=== PATIENT | male | born 1960 | race Hispanic/Latino ===

== ENCOUNTER 2017-03-04 13:15 | Emergency (ER) | payer MEDICAID ==
[2017-03-04 13:17] VITALS: BMI 26.2
[2017-03-04 13:23] VITALS: RESP 18; TEMP 99.2
--- NOTE | 2017-03-04 14:01 | ED PDOC ---
Arrival/HPI - General Historian: Patient - History of Present Illness Time/Duration: < week Symptom Onset: Sudden Symptom Course: Intermittent Quality: Cramping <Lawson Barrett - Last Filed: 03/04/17 14:21> <KelseyGriselda - Last Filed: 03/04/17 18:17> - General Chief Complaint: Abdominal Pain Time Seen by Provider: 03/04/17 13:18 - History of Present Illness Narrative History of Present Illness (Text): 03/04/17 13:50 This is a 57 year old male with PMHx CAD s/p stents, HTN, COPD, chronic smoking history who complains of epigastric abdominal pain. Pain began about 6 days ago and is intermittent, described as cramping. Patient stated that pain began suddenly and is not associated with meals. Patient states that pain begins epigastric but radiates up to the mid-sternum before returning down to the epigastric region. Patient stated that he lost about 10 pounds in a 8 or 9 day span, though he cites poor appetite and stress from new job. Patient states that he has never experienced this type of pain before. Patient denies fevers, chills, dyspnea, n/v/c/d/ dysuria. Patient also states that he used a cotton swab in his ear about 4 or 5 days ago, and since then he has been unable to hear very well in his left ear. PMHx: CAD, HTN, COPD PSHx: PCI with stents Allergies: NKDA Social: Current smoker smoking since age 9 or 10, but states that he has cut back. Denies alcohol, drugs. PMD: Dr. Coreas (Lawson Barrett) Past Medical History - Provider Review Nursing Documentation Reviewed: Yes - Infectious Disease Hx of Infectious Diseases: None - Tetanus Immunization Tetanus Immunization: Unknown - Cardiac Hx [place]: Yes (X2) - Pulmonary Hx Chronic Obstructive Pulmonary Disease (COPD): Yes Other/Comment: SMOKER - Neurological Hx Neurological Disorder: No - HEENT Hx HEENT Disorder: No - Renal Hx Renal Disorder: No - Endocrine/Metabolic Other/Comment: borderline DM - Hematological/Oncological Hx Blood Disorders: No - Integumentary Hx Dermatological Disorder: No - Musculoskeletal/Rheumatological Hx Musculoskeletal Disorders: No - Gastrointestinal Hx Gastrointestinal Disorders: No - Genitourinary/Gynecological Hx Genitourinary Disorders: No - Psychiatric Hx Depression: No Hx Emotional Abuse: No Hx Physical Abuse: No Hx Substance Use: Yes (RECOVERING) - Past Surgical History Past Surgical History: No Previous - Surgical History Hx Cardiac Catheterization: Yes (x 2 stents) - Anesthesia Hx Anesthesia: Yes Hx Anesthesia Reactions: No Hx Malignant Hyperthermia: No - Suicidal Assessment Feels Threatened In Home Enviroment: No <ArnoldLawson S - Last Filed: 03/04/17 14:21> Family/Social History - Physician Review Nursing Documentation Reviewed: Yes Family/Social History: No Known Family HX Smoking Status: Light Smoker < 10 Cigarettes Daily Hx Alcohol Use: Yes (stopped 15 years ago) Hx Substance Use: Yes (RECOVERING) Substance used: COCAINE; HEROINE Hx Substance Use Treatment: No <Lawson Barrett - Last Filed: 03/04/17 14:21> Allergies/Home Meds <Lawson Barrett - Last Filed: 03/04/17 14:21> <Minh Coleyosi - Last Filed: 03/04/17 18:17> Allergies/Adverse Reactions: Allergies No Known Allergies Allergy (Verified 08/13/12 12:09) Home Medications: Home Meds Medication Instructions Recorded Confirmed Clopidogrel [Plavix] 75 mg PO DAILY 08/13/13 03/04/17 Aspirin [Aspirin Chewable] 1 tab PO DAILY 03/04/17 03/04/17 Montelukast [Singulair] 1 tab PO DAILY 03/04/17 03/04/17 Review of Systems - Physician Review All systems were reviewed & negative as marked: Yes - Review of Systems Constitutional: Weight Change (lost 10 pounds in 8 or 9 days). absent: Fevers Eyes: Normal ENT: Normal Respiratory: Normal. absent: SOB Cardiovascular: Chest Pain (radiating from epigastric region) Gastrointestinal: Abdominal Pain (epigastric), Appetite Changes (poor appetite, patient cites stress from new job). absent: Stool Changes, Constipation, Diarrhea, Nausea, Vomiting, Food Intolerance Genitourinary Male: Normal. absent: Dysuria Musculoskeletal: Normal Skin: Normal Neurological: Normal Endocrine: Normal Hemo/Lymphatic: Normal Psychiatric: Normal <Lawson Barrett - Last Filed: 03/04/17 14:21> Physical Exam Vital Signs Reviewed: Yes Temperature: Afebrile Blood Pressure: Normal Pulse: Regular Respiratory Rate: Normal Appearance: Positive for: Well-Appearing Pain Distress: None Mental Status: Positive for: Alert and Oriented X 3 - Systems Exam Head: Present: Atraumatic, Normocephalic Pupils: Present: PERRL Extroacular Muscles: Present: EOMI Conjunctiva: Present: Normal Ears: Present: Other (cerumen impaction left ear) Mouth: Present: Moist Mucous Membranes Neck: Present: Normal Range of Motion Respiratory/Chest: Present: Clear to Auscultation, Good Air Exchange. No: Accessory Muscle Use Cardiovascular: Present: Regular Rate and Rhythm, Normal S1, S2 Abdomen: Present: Normal Bowel Sounds. No: Tenderness, Distention Upper Extremity: Present: Normal Inspection, NORMAL PULSES. No: Edema Lower Extremity: Present: Normal Inspection, NORMAL PULSES. No: Edema, CALF TENDERNESS Neurological: Present: GCS=15, CN II-XII Intact Skin: Present: Warm, Dry, Normal Color. No: Rashes Psychiatric: Present: Alert, Oriented x 3 <Lawson Barrett - Last Filed: 03/04/17 14:21> Medical Decision Making <Lawson Barrett - Last Filed: 03/04/17 14:21> - Lab Interpretations I have reviewed the lab results: Yes - EKG Interpretation Interpreted by ED Physician: Yes Type: 12 lead EKG <Griselda Cole - Last Filed: 03/04/17 18:17> ED Course and Treatment: 03/04/17 14:12 CBC, CMP, Coags, Amylase, Lipase, EKG, Cardiac ISO, UA EKG shows NSR at rate 67. No acute ST changes. (Lawson Barrett) 03/04/17 14:40 In agreement with resident note, which includes further HPI details. Patient was seen and evaluated with resident, came up with plan and treatment together. 57 year old male present complaining of intermittent epigastric abdominal pain that began 6 days ago. Labs, EKG, and abdomen and pelvis CT with IV Contrast were done. Patient's pain is palpable, mild, epigastric region. No anthony's sign. No melena or bloody stool. Initial labs reviewed. CT reading reviewed with patient. Cannot exclude malignancy or colitis. This was reviewed with patient and recommended admission for further evaluation and treatment. Abnormal findings discussed with patient in detail, advised admission based on prior poor compliance with follow-up, active symptoms and risk of inflammation/infection/ or malignancy. Limitations of labs and CT reviewed. Risks reviewed with patient of signing out against medical advice. 03/04/17 18:10 Patient decided to leave against medical advice: The patient declines admission, and wishes to leave the Emergency Department. This action is against my medical advice to the patient and the decision was made with informed refusal. The patient was told that admission is necessary and a full explanation of the rationale was given. The risks of leaving were explained to the patient and include, but are not limited to, worsening of known or currently unknown conditions, permanent disability and from undiagnosed or untreated conditions The patient has the capacity to make this informed decision and understands the clinical situation and my explanation of the risks of leaving. The patient voluntarily accepts these risks, and a signed AMA form documenting our conversation was obtained. The patient was given the opportunity to ask questions and reconsider. The patient was encouraged to return to the Emergency Department at any time for further care. (Griselda Cole) - Lab Interpretations Lab Results: 03/04/17 14:15 03/04/17 14:15 Lab Results 03/04/17 14:15: Sodium 143, Potassium 4.0, Chloride 104, Carbon Dioxide 26, Anion Gap 17, BUN 14, Creatinine 1.0, Est GFR ( Amer) > 60, Est GFR (Non- Af Amer) > 60, Random Glucose 82, Calcium 9.4, Total Bilirubin 0.5, AST 19, ALT 28, Alkaline Phosphatase 79, Lactate Dehydrogenase 395, Total Creatine Kinase 64 , Troponin I < 0.01, Total Protein 7.4, Albumin 4.4, Globulin 3.0, Albumin/ Globulin Ratio 1.5, Amylase 82, Lipase 89 03/04/17 14:15: PT 10.7, INR 0.99, APTT 34.1 H 03/04/17 14:15: WBC 8.4, RBC 4.89, Hgb 15.5, Hct 44.7, MCV 91.4, MCH 31.7, MCHC 34.7, RDW 14.1, Plt Count 234, MPV 10.6, Gran % 63.7, Lymph % (Auto) 27.1, Door % (Auto) 6.9 H, Eos % (Auto) 1.7, Baso % (Auto) 0.6, Gran # 5.36, Lymph # 2.3, Door # 0.6, Eos # 0.1, Baso # 0.05 - RAD Interpretation Radiology Orders: 03/04/17 14:37 ABD & PELVIS IV CONTRAST ONLY [CT] Stat - Medication Orders Current Medication Orders: Sodium Chloride (Sodium Chloride 0.9%) 1,000 mls @ 100 mls/hr IV .Q10H SHAKIRA Last Admin: 03/04/17 14:46 Dose: 100 mls/hr Discontinued Medications Famotidine (Pepcid) 20 mg IVP STAT STA Stop: 03/04/17 14:39 Last Admin: 03/04/17 14:46 Dose: 20 mg Iohexol (Omnipaque 350 100 Ml) Confirm Administered Dose 350 mg .ROUTE .STK-MED ONE Stop: 03/04/17 16:17 <Lawson Barrett - Last Filed: 03/04/17 14:21> - Scribe Statement The provider has reviewed the documentation as recorded by the Scribe <Griselda Cole - Last Filed: 03/04/17 18:17> - Scribe Statement Ruben Camargo All medical record entries made by the Scribe were at my direction and personally dictated by me. I have reviewed the chart and agree that the record accurately reflects my personal performance of the history, physical exam, medical decision making, and the department course for this patient. I have also personally directed, reviewed, and agree with the discharge instructions and disposition. (Griselda Cole) Disposition/Present on Arrival - Present on Arrival Any Indicators Present on Arrival: No History of DVT/PE: No History of Uncontrolled Diabetes: No Urinary Catheter: No History of Decub. Ulcer: No History Surgical Site Infection Following: None <Lawson Barrett - Last Filed: 03/04/17 14:21> - Disposition Have Diagnosis and Disposition been Completed?: Yes Disposition Time: 18:07 Patient Plan: Discharge <Griselda Cole - Last Filed: 03/04/17 18:17> - Disposition Diagnosis: Abdominal pain Disposition: AGAINST MEDICAL ADVICE Patient Problems: Current Active Problems Problem Status Onset Abdominal pain Acute Condition: GOOD Discharge Instructions (ExitCare): Abdominal Pain (ED) Additional Instructions: You are refusing admission to the hospital for further evaluation of abdominal pain and abnormal ct scan findings. Risks and potential diagnoses have been reviewed. Please follow-up immediately with your primary care doctor, you require statistical assistant follow-up. Prescriptions: Esomeprazole Magnesium [Nexium] 20 mg PO DAILY #7 ecc Referrals: PCP,NO [Primary Care Provider] - Follow up with primary Ethan OLSEN,MD Fidencio [Medical Doctor] - Follow up with primary Forms: [facility] [facility] ([place])
[2017-03-04 14:38] LABS: BASO # 0.05 K/mm3 (0.0-2.0); BASO % 0.6 % (0.0-3.0); EOS # 0.1 (0.0-0.7); EOS % 1.7 % (1.5-5.0); GRAN # 5.36 (1.4-6.5); GRAN % 63.7 % (50.0-68.0); HEMATOCRIT 44.7 % (42.0-52.0); LYMPH # 2.3 (1.2-3.4); LYMPH % 27.1 % (22.0-35.0); MEAN CELL VOLUME 91.4 fl (80.0-105.0); MEAN CORPUSCULAR HEMOGLOBIN 31.7 pg (25.0-35.0); MEAN CORPUSCULAR HGB CONC 34.7 g/dl (31.0-37.0); MEAN PLATELET VOLUME 10.6 fl (7.0-11.0); MONO # 0.6 (0.1-0.6); MONO % 6.9 % (1.0-6.0); RED CELL DISTRIBUTION WIDTH 14.1 % (11.5-14.5); WHITE BLOOD COUNT 8.4 10^3/ul (4.5-11.0)
[2017-03-04 14:43] LABS: ALB/GLOB RATIO 1.5 (1.1-1.8); ALKALINE PHOSPHATASE 79 U/L (38-126); ALT/SGPT 28 U/L (7-56); AMYLASE 82 U/L (35-125); AST/SGOT 19 U/L (17-59); BILIRUBIN,TOTAL 0.5 mg/dL (0.2-1.3); BLOOD UREA NITROGEN 14 mg/dL (7-21); CALCIUM 9.4 mg/dL (8.4-10.5); CARBON DIOXIDE 26 mmol/L (21-33); CHLORIDE 104 mmol/L (98-107); GFR AFRICAN-AMERICAN > 60; GLUCOSE,RANDOM 82 mg/dL (70-110); LIPASE 89 U/L (23-300); SODIUM 143 mmol/L (132-148); TOTAL PROTEIN 7.4 g/dL (5.8-8.3)
[2017-03-04 14:45] LABS: INR 0.99 (0.93-1.08); PARTIAL THROMBOPLASTIN TIME 34.1 Seconds (23.7-30.8)
[2017-03-04] MEDS ORDERED: Sodium Chloride 0.9% 1,000 ML IV SCH (14:45)
[2017-03-04 15:39] LABS: TROPONIN I < 0.01 ng/mL
[2017-03-04] MEDS ORDERED: Iohexol 350 MG/100 ML VIAL ONE (16:16)
[2017-03-04 16:40] VITALS: BP 132/78; PULSE 51; O2SAT 99
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
--- NOTE | 2017-03-05 12:14 | CARD ---
APPROVED REPORT EKG Measurement Heart [id number] <Conclusion> Normal sinus rhythm Normal ECG
== END 2017-03-04 18:18 | disposition left against medical advice (07) ==
LOC: ED 13:15
DX: R10.13 Epigastric pain (principal)
CPT/HCPCS: 74177; 80053; 82150; 82550; 83615; 83690; 84484; 85025; 85610; 85730; 93005; 96374; 99284; J7040; Q9967

== ENCOUNTER 2017-04-02 12:36 | Emergency (ER) | payer MEDICAID ==
[2017-04-02 12:37] VITALS: BMI 26.2
[2017-04-02 12:50] VITALS: BP 143/86; PULSE 68; RESP 16; TEMP 98.7; O2SAT 98
--- NOTE | 2017-04-02 13:02 | ED PDOC ---
Arrival/HPI - General Chief Complaint: Back Pain Time Seen by Provider: 04/02/17 12:53 Historian: Patient - History of Present Illness Time/Duration: Other (1 day) Symptom Onset: Gradual Symptom Course: Unchanged Quality: Aching Severity Level: Moderate Associated Symptoms (Text): 04/02/17 12:58 Patient reports that yesterday he was bending over to clean the toilet bowl swirling the brush around the bowl and he developed pain in his right thoracic subscapular area. No direct blow. No fall. No dyspnea. No chest pain. No abdominal pain nausea vomiting or diarrhea. No genitourinary symptoms. No fever or chills. He reports that he needs a note for work today. Past Medical History - Infectious Disease Hx of Infectious Diseases: None - Tetanus Immunization Tetanus Immunization: Unknown - Reproductive Currently : No - Cardiac Hx [place]: Yes (X2) Other/Comment: cardiac stent - Pulmonary Hx Chronic Obstructive Pulmonary Disease (COPD): Yes Other/Comment: SMOKER - Neurological Hx Neurological Disorder: No - HEENT Hx HEENT Disorder: No - Renal Hx Renal Disorder: No - Endocrine/Metabolic Other/Comment: borderline DM - Hematological/Oncological Hx Blood Disorders: No - Integumentary Hx Dermatological Disorder: No - Musculoskeletal/Rheumatological Hx Musculoskeletal Disorders: No - Gastrointestinal Hx Gastrointestinal Disorders: No - Genitourinary/Gynecological Hx Genitourinary Disorders: No - Psychiatric Hx Depression: No Hx Emotional Abuse: No Hx Physical Abuse: No Hx Substance Use: Yes (RECOVERING) - Past Surgical History Past Surgical History: No Previous - Surgical History Hx Cardiac Catheterization: Yes (x 2 stents) - Anesthesia Hx Anesthesia: Yes Hx Anesthesia Reactions: No Hx Malignant Hyperthermia: No - Suicidal Assessment Feels Threatened In Home Enviroment: No Family/Social History - Physician Review Nursing Documentation Reviewed: Yes Family/Social History: Unknown Family HX Smoking Status: Light Smoker < 10 Cigarettes Daily Hx Alcohol Use: Yes (stopped 15 years ago) Hx Substance Use: Yes (RECOVERING) Substance used: COCAINE; HEROINE Hx Substance Use Treatment: No Allergies/Home Meds Allergies/Adverse Reactions: Allergies No Known Allergies Allergy (Verified 08/13/12 12:09) Home Medications: Home Meds Medication Instructions Recorded Confirmed Clopidogrel [Plavix] 75 mg PO DAILY 08/13/13 03/04/17 Aspirin [Aspirin Chewable] 1 tab PO DAILY 03/04/17 03/04/17 Montelukast [Singulair] 1 tab PO DAILY 03/04/17 03/04/17 Review of Systems - Physician Review All systems were reviewed & negative as marked: Yes - Review of Systems Constitutional: Normal Respiratory: Normal Cardiovascular: Normal Gastrointestinal: Normal Genitourinary Male: Normal Musculoskeletal: Back Pain. absent: Neck Pain Skin: Normal Neurological: Normal Physical Exam Vital Signs Temp Pulse Resp BP Pulse Ox 04/02/17 12:46 98.7 F 68 16 143/86 98 Temperature: Afebrile Blood Pressure: Normal Pulse: Regular Respiratory Rate: Normal Appearance: Positive for: Well-Appearing, Non-Toxic, Comfortable Pain Distress: None Mental Status: Positive for: Alert and Oriented X 3 - Systems Exam Neck: Present: Normal Range of Motion Respiratory/Chest: Present: Clear to Auscultation, Good Air Exchange. No: Respiratory Distress, Accessory Muscle Use Cardiovascular: Present: Regular Rate and Rhythm, Normal S1, S2. No: Murmurs Abdomen: Present: Normal Bowel Sounds. No: Tenderness, Distention, Peritoneal Signs Back: Present: Normal Inspection, Paraspinal Tenderness (Right thoracic subscapular tenderness with no spasm no swelling and no skin changes). No: CVA Tenderness, Midline Tenderness Upper Extremity: Present: Normal Inspection. No: Cyanosis, Edema Lower Extremity: Present: Normal Inspection. No: Edema Neurological: Present: GCS=15, CN II-XII Intact, Speech Normal, Motor Func Grossly Intact, Gait Normal Medical Decision Making ED Course and Treatment: 04/02/17 13:02 Acute musculoskeletal strain at home yesterday. He will be discharged home with muscle relaxers to follow up with PMD. He is on aspirin and Plavix. No nonsteroidals. - Medication Orders Current Medication Orders: Cyclobenzaprine HCl (Flexeril) 10 mg PO ONCE SHAKIRA Ketorolac Tromethamine (Toradol) 60 mg IM ONCE ONE Stop: 04/02/17 12:59 Disposition/Present on Arrival - Present on Arrival Any Indicators Present on Arrival: No History of DVT/PE: No History of Uncontrolled Diabetes: No Urinary Catheter: No History of Decub. Ulcer: No History Surgical Site Infection Following: None - Disposition Have Diagnosis and Disposition been Completed?: Yes Diagnosis: Acute myofascial strain Disposition: HOME/ ROUTINE Disposition Time: 13:03 Patient Plan: Discharge Condition: GOOD Discharge Instructions (ExitCare): Thoracic Back Strain (ED) Additional Instructions: Rest and ice. Follow-up with PMD. Follow up in the ER as needed. Tylenol over- the-counter as directed on bottle as needed. Prescriptions: Cyclobenzaprine [Cyclobenzaprine HCl] 5 mg PO Q8 #15 tab Forms: [facility] (Kiswahili), WORK NOTE
== END 2017-04-02 13:23 | disposition home or self-care (01) ==
LOC: ED 12:36
DX: S29.012A Strain of muscle and tendon of back wall of thorax, initial encounter (principal); X50.1XXA Overexertion from prolonged static or awkward postures, initial encounter; Y93.E9 Activity, other interior property and clothing maintenance
CPT/HCPCS: 96372; 99283; J1885

== ENCOUNTER 2018-06-25 10:20 | Emergency (ER) | payer MEDICAID ==
[2018-06-25 10:20] VITALS: BMI 26.2
[2018-06-25 10:53] VITALS: RESP 18; TEMP 98.8; O2SAT 95
--- NOTE | 2018-06-25 11:36 | RAD ---
Date of service: 06/25/2018 HISTORY: chest pain COMPARISON: 04/22/2016 FINDINGS: LUNGS: No active pulmonary disease. PLEURA: No significant pleural effusion identified, no pneumothorax apparent. CARDIOVASCULAR: No aortic atherosclerotic calcification present. Normal cardiac size. Mild vascular congestion OSSEOUS STRUCTURES: No significant abnormalities. VISUALIZED UPPER ABDOMEN: Normal. OTHER FINDINGS: None. IMPRESSION: Mild vascular congestion. The lungs are otherwise clear
[2018-06-25 11:37] LABS: BASO # 0.06 K/mm3 (0.0-2.0); BASO % 0.7 % (0.0-3.0); EOS # 0.1 (0.0-0.7); EOS % 1.7 % (1.5-5.0); GRAN # 5.06 (1.4-6.5); GRAN % 63.1 % (50.0-68.0); HEMOGLOBIN 14.8 g/dL (14.0-18.0); LYMPH # 2.3 (1.2-3.4); LYMPH % 28.7 % (22.0-35.0); MEAN CORPUSCULAR HEMOGLOBIN 30.4 pg (25.0-35.0); MEAN PLATELET VOLUME 10.3 fl (7.0-11.0); MONO # 0.5 (0.1-0.6); MONO % 5.8 % (1.0-6.0); RBC 4.87 10^6/uL (3.5-6.1); RED CELL DISTRIBUTION WIDTH 14.6 % (11.5-14.5)
--- NOTE | 2018-06-25 11:39 | ED PDOC ---
Arrival/HPI - General Chief Complaint: Chest Pain Time Seen by Provider: 06/25/18 10:39 Historian: Patient - History of Present Illness Narrative History of Present Illness (Text): 06/25/18 10:45 A 58 year old male, a current smoker- a few cigarettes a day, whose past medical history includes CAD, AZ (s/p stent placement), COPD, hypertension, and hyperlipidemia, presents to the emergency department complaining of chest pain for the past 3 days. Patient reports pain starts in his left elbow and radiates up his left arm into his chest, he describes it as a sharp pain. Patient notes pain worsens when lifting his left arm above his head. Patient reports he takes 91 mg of Aspirin daily and took a dose today. Patient admits to having a full cardiac workup last year but is unsure of results. Patient notes he does heavy lifting at his job but denies any specific trauma to left arm. Patient denies any drug use, fever, chills, shortness of breath, abdominal pain, numbness, weakness, paresthesia, palpitations, diaphoresis, headache, dizziness, or any other complaints. PMD: Dr. To Time/Duration: Other (3 days) Symptom Onset: Gradual Symptom Course: Unchanged Activities at Onset: Light Context: Home Past Medical History - Provider Review Nursing Documentation Reviewed: Yes - Infectious Disease Hx of Infectious Diseases: None - Tetanus Immunization Tetanus Immunization: Unknown - Cardiac Hx Cardiac Disorders: Yes Hx [place]: Yes (X2) Other/Comment: cardiac stent - Pulmonary Hx Chronic Obstructive Pulmonary Disease (COPD): Yes Other/Comment: SMOKER - Neurological Hx Neurological Disorder: No - HEENT Hx HEENT Disorder: No - Renal Hx Renal Disorder: No - Endocrine/Metabolic Other/Comment: borderline DM - Hematological/Oncological Hx Blood Disorders: No - Integumentary Hx Dermatological Disorder: No - Musculoskeletal/Rheumatological Hx Musculoskeletal Disorders: No - Gastrointestinal Hx Gastrointestinal Disorders: No - Genitourinary/Gynecological Hx Genitourinary Disorders: No - Psychiatric Hx Depression: No Hx Emotional Abuse: No Hx Physical Abuse: No Hx Substance Use: Yes (RECOVERING) - Past Surgical History Past Surgical History: No Previous - Surgical History Hx Cardiac Catheterization: Yes (x 2 stents) - Anesthesia Hx Anesthesia: Yes Hx Anesthesia Reactions: No Hx Malignant Hyperthermia: No - Suicidal Assessment Feels Threatened In Home Enviroment: No Family/Social History - Physician Review Nursing Documentation Reviewed: Yes Family/Social History: No Known Family HX Smoking Status: Light Smoker < 10 Cigarettes Daily Hx Alcohol Use: Yes (stopped 15 years ago) Hx Substance Use: Yes (RECOVERING) Substance used: COCAINE; HEROINE Hx Substance Use Treatment: No Allergies/Home Meds Allergies/Adverse Reactions: Allergies No Known Allergies Allergy (Verified 08/13/12 12:09) Home Medications: Home Meds Medication Instructions Recorded Confirmed Aspirin [Aspirin Chewable] 81 mg PO DAILY 07/11/17 Atorvastatin [Lipitor] 40 mg PO DAILY 07/11/17 Bupropion HCl [Bupropion HCl Sr] 150 mg PO TID 07/11/17 Cilostazol [Pletal] 50 mg PO BID 07/11/17 Clopidogrel [Plavix] 75 mg PO DAILY 07/11/17 Cyclobenzaprine [Flexeril] 5 mg PO TID PRN 07/11/17 Lidocaine 2% [Xylocaine 2%] 4 % [place] PRN PRN 07/11/17 Lisinopril [Zestril] 10 mg PO DAILY 07/11/17 Montelukast [Singulair] 10 mg PO DAILY 07/11/17 Nitroglycerin [Nitrostat] 0.4 mg SL PRN PRN 07/11/17 Omeprazole 20 mg PO DAILY 07/11/17 Trifluridine 1 drop OU PRN PRN 07/11/17 traZODone [Desyrel] 100 mg PO HS 07/11/17 Review of Systems - Physician Review All systems were reviewed & negative as marked: Yes - Review of Systems Constitutional: Normal. absent: Fevers, Other (chills) Eyes: Normal. absent: Vision Changes ENT: Normal. absent: Hearing Changes Respiratory: Normal. absent: SOB, Cough Cardiovascular: Chest Pain. absent: Palpitations Gastrointestinal: absent: Abdominal Pain, Stool Changes, Nausea, Vomiting, Appetite Changes Genitourinary Male: Normal. absent: Dysuria Musculoskeletal: Arthralgias (left arm pain) Skin: Normal. absent: Rash Neurological: Normal. absent: Headache, Dizziness, Other (no numbness, no weakness, no paresthesia) Endocrine: Normal Hemo/Lymphatic: Normal Physical Exam Vital Signs Reviewed: Yes Vital Signs Temp Pulse Resp BP Pulse Ox 06/25/18 10:53 98.8 F 68 18 111/76 95 Temperature: Afebrile Blood Pressure: Normal Pulse: Regular Respiratory Rate: Normal Appearance: Positive for: Well-Appearing Pain Distress: None Mental Status: Positive for: Alert and Oriented X 3 - Systems Exam Head: Present: Atraumatic, Normocephalic Pupils: Present: PERRL Extroacular Muscles: Present: EOMI Conjunctiva: Present: Normal Mouth: Present: Moist Mucous Membranes Nose (External): Present: Atraumatic Nose (Internal): Present: Normal Inspection Neck: Present: Normal Range of Motion. No: Meningeal Signs, MIDLINE TENDERNESS, Paraspinal Tenderness Respiratory/Chest: Present: Clear to Auscultation, Good Air Exchange. No: Respiratory Distress, Accessory Muscle Use Cardiovascular: Present: Regular Rate and Rhythm, Normal S1, S2, Peripheal Pulses Present Abdomen: Present: Normal Bowel Sounds. No: Tenderness, Distention, Peritoneal Signs, Rebound, Guarding Back: Present: Normal Inspection. No: CVA Tenderness, Paraspinal Tenderness Upper Extremity: Present: Normal Inspection, NORMAL PULSES, Neurovascularly Intact, Capillary Refill < 2s. No: Cyanosis, Edema, Temperature Abnormalties Lower Extremity: Present: Normal Inspection, NORMAL PULSES, Normal ROM, Neurovascularly Intact, Capillary Refill < 2 s. No: Edema, Tenderness, Swelling, Deformity, Temperature Abnormalties Neurological: Present: GCS=15, CN II-XII Intact, Speech Normal, Motor Func Grossly Intact, Normal Sensory Function, Gait Normal Skin: Present: Warm, Dry, Normal Color. No: Rashes Lymphatic: Present: Cervical Adenopathy Psychiatric: Present: Alert, Oriented x 3, Normal Insight, Normal Concentration, Normal Affect, Normal Mood Medical Decision Making ED Course and Treatment: 06/25/18 10:48 Impression: 58 year old male with significant cardiac history presenting to the emergency department complaining of chest pain. Plan: -- EKG -- CXR -- CBC, CMP -- Cardiac Iso -- COAGs -- Tylenol -- Aspirin chewable -- Urinalysis, UDS, culture -- Reassess and disposition Prior Visits: Notes and results from previous visits were reviewed. Progress Notes: Bloodwork shows troponin of 0.03, otherwise unremarkable. CXR shows mild vascular congestion, otherwise normal. EKG shows new T wave inversions in leads III and aVF 12:00 Offered patient inpatient observation secondary to complaint of chest pain/left arm pain, cardiac history, EKG changes, and troponin of 0.03. Benefits of staying include inpatient observation, cardiac consultation, further evaluation and treatment of symptoms. Risks of leaving include , disability, worsening of symptoms. 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 Pending UA and UDS. Discussed results of diagnostic testing with patient, including EKG with changes from prior and troponin of 0.03, explained clinical significance in laymens terms, including risks vs benefits stated above. Patient verbalized understanding of conversation and was given the opportunity to ask questions. Continues to wish to leave AMA. Will sign pt out AMA. Advised to followup with cardiology and PMD today. 12:08 Leaving Against Medical Advice (AMA): The patient is choosing to leave against medical advice. I have personally explained to the patient that choosing to do so may result in permanent bodily harm, diability, or . I have discussed at great length that without further evaluation and monitoring there may be unforeseen circumstances and/or deterioration causing permanent bodily harm or as a result of their choice. The patient is alert, oriented, and shows the mental capacity to make clear decisions regarding the patients health care at this time. The patient continues to wish to leave against medical advice. In light of the patients decision to leave against medical advice, follow-up has been arranged and the patient is aware of the importance to following up as instructed. The patient has been advised that they should return to the emergency room immediately if they change their mind at any time, or if their condition begins to change or worsen in any way. 12:50 AMA form was signed by both me and patient after above discussion. Witnessed by nurse Addison. Pt states he will followup with his PMD and cardiology as soon as possible and was advised to return to the ED if he wishes to be re-evaluated or for any new/worsening symptoms. - Lab Interpretations Lab Results: 06/25/18 11:21 06/25/18 11:21 Lab Results 06/25/18 11:21: Sodium 140, Potassium 4.3, Chloride 107, Carbon Dioxide 26, Anion Gap 11, BUN 10, Creatinine 0.8, Est GFR ( Amer) > 60, Est GFR (Non- Af Amer) > 60, Random Glucose 90, Calcium 9.5, Magnesium 2.2, Total Bilirubin 0.3, AST 22, ALT 19, Alkaline Phosphatase 82, Lactate Dehydrogenase 406, Total Creatine Kinase 66, Troponin I 0.03 D, NT-Pro-B Natriuret Pep 107, Total Protein 7.2, Albumin 4.1, Globulin 3.1, Albumin/Globulin Ratio 1.3 06/25/18 11:21: PT 10.7, INR 0.93, APTT 36.2 06/25/18 11:21: WBC 8.0, RBC 4.87, Hgb 14.8, Hct 44.8, MCV 92.0, MCH 30.4, MCHC 33.0, RDW 14.6 H, Plt Count 265, MPV 10.3, Gran % 63.1, Lymph % (Auto) 28.7, [place] % (Auto) 5.8, Eos % (Auto) 1.7, Baso % (Auto) 0.7, Gran # 5.06, Lymph # (Auto) 2.3, [place] # (Auto) 0.5, Eos # (Auto) 0.1, Baso # (Auto) 0.06 I have reviewed the lab results: Yes - RAD Interpretation Narrative RAD Interpretations (Text): CXR: Mild vascular congestion. Otherwise no active disease. Radiology Orders: 06/25/18 10:43 CHEST PORTABLE [RAD] Stat Chef Concierge: Radiologist - EKG Interpretation EKG Interpretation (Text): 06/25/18 11:10 EKG: Ordered, reviewed, and interpreted the EKG with ED attending Dr. Ribeiro Rate : 70 BPM Rhythm : NSR Interpretation : Normal intervals, no stemi, T-wave inversions in leads 3, AVF; different from prior EKGs Interpreted by ED Physician: Yes Type: 12 lead EKG Comparison: Different from prev. EKG (03/04/17) - Medication Orders Current Medication Orders: Discontinued Medications Acetaminophen (Tylenol 325mg Tab) 650 mg PO STAT STA Stop: 06/25/18 11:29 Aspirin (Aspirin Chewable) 81 mg PO STAT STA Stop: 06/25/18 10:44 Last Admin: 06/25/18 11:26 Dose: 81 mg - Scribe Statement The provider has reviewed the documentation as recorded by the Mian Nelson All medical record entries made by the Mian were at my direction and personally dictated by me. I have reviewed the chart and agree that the record accurately reflects my personal performance of the history, physical exam, medical decision making, and the department course for this patient. I have also personally directed, reviewed, and agree with the discharge instructions and disposition. Disposition/Present on Arrival - Present on Arrival Any Indicators Present on Arrival: No History of DVT/PE: No History of Uncontrolled Diabetes: No Urinary Catheter: No History of Decub. 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
[2018-06-25 11:46] LABS: ALB/GLOB RATIO 1.3 (1.1-1.8); ALBUMIN 4.1 g/dL (3.0-4.8); ALT/SGPT 19 U/L (7-56); AST/SGOT 22 U/L (17-59); BLOOD UREA NITROGEN 10 mg/dL (7-21); CALCIUM 9.5 mg/dL (8.4-10.5); GFR NON-AFRICAN AMERICAN > 60
[2018-06-25 11:47] LABS: INR 0.93; PARTIAL THROMBOPLASTIN TIME 36.2 Seconds (25.1-36.5); PROTHROMBIN TIME 10.7 SECONDS (9.4-12.5)
[2018-06-25 11:58] LABS: B-TYPE NATRIURETIC PEPTIDE 107 pg/mL (0-450); TROPONIN I 0.03 ng/mL
[2018-06-25 13:01] VITALS: BP 124/75; PULSE 60
--- NOTE | 2018-06-25 20:39 | CARD ---
APPROVED REPORT Date of service: 06/25/2018 EKG Measurement Heart [id number] OR [id number] <Conclusion> Normal sinus rhythm Septal infarct, age undetermined Abnormal ECG
== END 2018-06-25 12:59 | disposition left against medical advice (07) ==
LOC: ED 10:20
DX: R07.9 Chest pain, unspecified (principal); I25.10 Atherosclerotic heart disease of native coronary artery without angina pectoris; I25.2 Old myocardial infarction; I10 Essential (primary) hypertension; J44.9 Chronic obstructive pulmonary disease, unspecified; E78.5 Hyperlipidemia, unspecified; Z95.5 Presence of coronary angioplasty implant and graft; F17.210 Nicotine dependence, cigarettes, uncomplicated